=== PATIENT | female | born 1955 ===

== ENCOUNTER 2017-07-19 22:50 | Inpatient (IN) ==
[2017-07-20] MEDS ORDERED: GLUCAGON 1 MG VIAL IM PRN (01:43)
[2017-07-20] MEDS ORDERED: DEXTROSE 50% 25 GM/50 ML VIAL IV PRN (01:43)
[2017-07-20] MEDS ORDERED: ALBUTEROL 2.5 MG/3 ML NEB RESP TX PRN (01:43)
[2017-07-20] MEDS: PANTOPRAZOLE 40 MG VIAL IV SCH (02:25)
[2017-07-20] MEDS: LACTATED RINGERS 1,000 ML IV SCH ×2 (02:25→12:57)
[2017-07-20] MEDS: hydrALAZINE 20 MG/1 ML VIAL IV PRN ×3 (02:30→23:42)
[2017-07-20] MEDS ORDERED: SODIUM CHLORIDE 0.9% 2,000 ML IV ONE (02:30)
[2017-07-20 02:54] LABS: ABG Base Excess -7.6 MMOL/L (-2.5-2.5); ABG HCO3 18.2 MMOL/L (20-26); ABG Oxygen Saturation 99.9 % (95-100); ABG PCO2 31.3 MM HG (35-48); ABG PH 7.348 (7.35-7.45); ABG TCO2 16.2 MMOL/L (23-27); Allen Test Positive; Pt O2 Delivery Device Ventilator
[2017-07-20] MEDS ORDERED: PROPOFOL 1,000 MG/100 ML BOTTLE IV ONE (04:34)
[2017-07-20] MEDS: PROPOFOL 1,000 MG/100 ML BOTTLE IV SCH ×3 (04:40→17:46)
[2017-07-20] MEDS: INSULIN REGULAR 100 UNIT/ML SUBCUT SCH ×3 (05:26→18:39)
[2017-07-20 05:28] LABS: Basophils % 0.2 % (0.0-0.8); Eosinophils % 0.3 % (0.00-10.9); Hematocrit 23.8 VOL% (35.7-47.0); Hemoglobin 7.5 GM/DL (12.0-16.0); Immature Granulocytes % 3.4 %; Immature Granulocytes Absolute 0.41 #; Lymphocytes % 8.2 % (21.3-54.2); Mean Corpuscular HGB Conc 31.5 GM/DL (32-36); Mean Corpuscular Hemoglobin 31 PG (27-34); Mean Corpuscular Volume 99.2 FL (87-102); Mean Platelet Volume 9.9 FL (9.6-12.0); Monocytes # 0.4 10*3/uL (0.11-0.8); NRBC # 0.02 10*3/uL; Neutrophils # 10.1 10*3/uL (1.4-7.4); Neutrophils % 84.9 % (38.7-73.9); Platelet Count 170 T/CUMM (130-400); Red Cell Distribution Width 13.2 % (9.3-17.3); White Blood Count 11.9 T/CUMM (4-12)
[2017-07-20 05:56] LABS: Band Neutrophils 4 % (0-10); Lymphocytes 4 % (20-55); Platelet Estimate Normal; Segmented Neutrophils 86 % (50-85); Total Cells Counted 100
[2017-07-20 05:57] LABS: Giant Platelets Few; Hypochromasia 1+
[2017-07-20 06:14] LABS: Alanine Aminotransferase 464 U/L (13-56); Albumin 2.6 G/DL (3.4-5.0); Alkaline Phosphatase 118 U/L (45-117); Aspartate Amino Transferase 1073 U/L (0-37); Bilirubin,Total < 0.39 MG/DL (0.2-1.0); Blood Urea Nitrogen 75 MG/DL (7-18); Calcium 8.2 MG/DL (8.5-10.1); Glucose 93 MG/DL (74-106); Osmolality,Calculated 300.4 MOS/KG (273-304); Sodium 140 MMOL/L (136-145)
[2017-07-20 06:17] LABS: Potassium 6.4 MMOL/L (3.5-5.1)
[2017-07-20] MEDS ORDERED: SODIUM POLYSTYRENE SULFATE 15 GM/60 ML BOTTLE PO STA (06:21)
[2017-07-20] MEDS: ALBUTEROL/IPRATROPIUM 3 ML NEB RESP TX SCH ×3 (07:38→19:26)
[2017-07-20 08:31] LABS: ABG Base Excess -7.1 MMOL/L (-2.5-2.5); ABG HCO3 18.6 MMOL/L (20-26); ABG Oxygen Saturation 99.9 % (95-100); ABG PCO2 29.8 MM HG (35-48); ABG PH 7.372 (7.35-7.45); ABG TCO2 16.2 MMOL/L (23-27)
[2017-07-20] MEDS ORDERED: PANTOPRAZOLE 40 MG TABLET PO SCH (09:00)
[2017-07-20] MEDS: ENOXAPARIN 30 MG/0.3 ML SYRINGE SUBCUT SCH (09:34)
[2017-07-20 12:47] LABS: Calcium 8.2 MG/DL (8.5-10.1); Osmolality,Calculated 304.1 MOS/KG (273-304); Potassium 5.9 MMOL/L (3.5-5.1)
[2017-07-20] MEDS: SODIUM BICARB INJ 50 MEQ in DEXTROSE 5% 1,000 ML IV SCH (17:45)
[2017-07-21] MEDS: PROPOFOL 1,000 MG/100 ML BOTTLE IV SCH ×2 (00:27→06:57)
[2017-07-21] MEDS: INSULIN REGULAR 100 UNIT/ML SUBCUT SCH ×4 (00:55→17:45)
[2017-07-21] MEDS: ALBUTEROL/IPRATROPIUM 3 ML NEB RESP TX SCH ×4 (01:12→19:30)
[2017-07-21] MEDS: PANTOPRAZOLE 40 MG VIAL IV SCH (02:53)
[2017-07-21 04:06] LABS: ABG Base Excess -5.3 MMOL/L (-2.5-2.5); ABG Oxygen Saturation 97.8 % (95-100); ABG PCO2 32.2 MM HG (35-48); ABG PH 7.385 (7.35-7.45); ABG TCO2 18.8 MMOL/L (23-27); Allen Test Positive; Pt O2 Delivery Device Ventilator
[2017-07-21] MEDS: hydrALAZINE 20 MG/1 ML VIAL IV PRN ×2 (05:32→17:23)
[2017-07-21 06:38] LABS: Basophils % 0.2 % (0.0-0.8); Eosinophils % 0.2 % (0.00-10.9); Hematocrit 23.3 VOL% (35.7-47.0); Hemoglobin 7.5 GM/DL (12.0-16.0); Immature Granulocytes % 1.6 %; Immature Granulocytes Absolute 0.21 #; Lymphocytes # 0.9 10*3/uL (1.4-4.0); Lymphocytes % 6.6 % (21.3-54.2); Mean Corpuscular HGB Conc 32.2 GM/DL (32-36); Mean Corpuscular Hemoglobin 32 PG (27-34); Mean Corpuscular Volume 98.7 FL (87-102); Mean Platelet Volume 10.1 FL (9.6-12.0); Monocytes # 0.6 10*3/uL (0.11-0.8); Monocytes % 4.7 % (1.7-12.7); Neutrophils # 11.3 10*3/uL (1.4-7.4); Neutrophils % 86.7 % (38.7-73.9); Platelet Count 168 T/CUMM (130-400); Red Blood Count 2.36 MC/CUMM (3.8-5.5); Red Cell Distribution Width 13.8 % (9.3-17.3)
[2017-07-21 07:15] LABS: Magnesium 3.1 MG/DL (1.8-2.4); Osmolality,Calculated 304.4 MOS/KG (273-304); Potassium 4.4 MMOL/L (3.5-5.1)
[2017-07-21] MEDS: ENOXAPARIN 30 MG/0.3 ML SYRINGE SUBCUT SCH (09:24)
[2017-07-21] MEDS: SODIUM BICARB INJ 50 MEQ in DEXTROSE 5% 1,000 ML IV SCH (12:57)
[2017-07-21] MEDS: MORPHINE 2 MG/1 ML SYRINGE IV PRN (18:01)
[2017-07-21] MEDS: LEVOFLOXACIN INJ 750 MG in PREMIX 1 EACH IV SCH (21:19)
[2017-07-22] MEDS: ALBUTEROL/IPRATROPIUM 3 ML NEB RESP TX SCH ×4 (00:33→20:05)
[2017-07-22] MEDS: INSULIN REGULAR 100 UNIT/ML SUBCUT SCH ×5 (00:35→21:51)
[2017-07-22] MEDS: PANTOPRAZOLE 40 MG VIAL IV SCH (02:52)
[2017-07-22 06:23] LABS: Alanine Aminotransferase 202 U/L (13-56); Albumin 2.4 G/DL (3.4-5.0); Alkaline Phosphatase 84 U/L (45-117); Aspartate Amino Transferase 59 U/L (0-37); Bilirubin,Direct < 0.100 MG/DL (0.0-0.20); Bilirubin,Indirect 0.3 MG/DL (0.0-1.0); Total Protein 5.1 G/DL (6.4-8.3)
[2017-07-22] MEDS: MORPHINE 2 MG/1 ML SYRINGE IV PRN (07:10)
[2017-07-22] MEDS: PROPOFOL 1,000 MG/100 ML BOTTLE IV SCH (07:14)
[2017-07-22] MEDS: ENOXAPARIN 30 MG/0.3 ML SYRINGE SUBCUT SCH (08:54)
[2017-07-22] MEDS: SODIUM BICARB INJ 50 MEQ in DEXTROSE 5% 1,000 ML IV SCH (11:45)
[2017-07-22] MEDS: oxyCODONE/ACETAMINOPHEN 5-325 MG TABLET PO PRN ×2 (12:04→21:50)
[2017-07-22] MEDS ORDERED: ONDANSETRON 4 MG TABLET PO PRN (15:40)
[2017-07-22] MEDS: TRIAMTERENE/HCTZ 37.5-25 MG TABLET PO SCH (16:19)
[2017-07-22] MEDS: NEBIVOLOL 10 MG TABLET PO SCH (16:20)
[2017-07-22] MEDS ORDERED: ALBUTEROL 2.5 MG/3 ML NEB RESP TX PRN (19:00)
[2017-07-22] MEDS: LOSARTAN 50 MG TABLET PO SCH (21:50)
[2017-07-22] MEDS: AMITRIPTYLINE 25 MG TABLET PO SCH (21:51)
[2017-07-23] MEDS: ALBUTEROL/IPRATROPIUM 3 ML NEB RESP TX SCH ×4 (01:21→19:08)
[2017-07-23] MEDS: PANTOPRAZOLE 40 MG VIAL IV SCH (02:24)
[2017-07-23] MEDS: PROPOFOL 1,000 MG/100 ML BOTTLE IV SCH (03:54)
[2017-07-23 05:30] LABS: Calcium 7.7 MG/DL (8.5-10.1); Osmolality,Calculated 289.5 MOS/KG (273-304); Potassium 4.3 MMOL/L (3.5-5.1)
[2017-07-23 05:55] LABS: Alanine Aminotransferase 120 U/L (13-56); Albumin 2.2 G/DL (3.4-5.0); Alkaline Phosphatase 70 U/L (45-117); Aspartate Amino Transferase 24 U/L (0-37); Bilirubin,Indirect 0.3 MG/DL (0.0-1.0); Bilirubin,Total < 0.39 MG/DL (0.2-1.0); Total Protein 4.7 G/DL (6.4-8.3)
[2017-07-23 06:07] LABS: Basophils % 0.3 % (0.0-0.8); Eosinophils # 0.3 10*3/uL (0.0-0.87); Eosinophils % 2.7 % (0.00-10.9); Hematocrit 22.8 VOL% (35.7-47.0); Hemoglobin 7.3 GM/DL (12.0-16.0); Immature Granulocytes % 1.1 %; Immature Granulocytes Absolute 0.13 #; Lymphocytes # 2.1 10*3/uL (1.4-4.0); Lymphocytes % 18.1 % (21.3-54.2); Mean Corpuscular Hemoglobin 32 PG (27-34); Mean Corpuscular Volume 98.3 FL (87-102); Mean Platelet Volume 9.7 FL (9.6-12.0); Monocytes # 0.8 10*3/uL (0.11-0.8); Neutrophils # 8.3 10*3/uL (1.4-7.4); Neutrophils % 70.8 % (38.7-73.9); Platelet Count 186 T/CUMM (130-400); Red Blood Count 2.32 MC/CUMM (3.8-5.5); Red Cell Distribution Width 13.2 % (9.3-17.3); White Blood Count 11.8 T/CUMM (4-12)
[2017-07-23] MEDS: INSULIN REGULAR 100 UNIT/ML SUBCUT SCH ×4 (09:26→20:56)
[2017-07-23] MEDS: ENOXAPARIN 30 MG/0.3 ML SYRINGE SUBCUT SCH (09:27)
[2017-07-23] MEDS: TRIAMTERENE/HCTZ 37.5-25 MG TABLET PO SCH (09:27)
[2017-07-23] MEDS: DULoxetine 20 MG CAPSULE PO SCH (09:27)
[2017-07-23] MEDS: LOSARTAN 50 MG TABLET PO SCH ×2 (09:27→20:56)
[2017-07-23] MEDS: NEBIVOLOL 10 MG TABLET PO SCH (09:27)
[2017-07-23] MEDS: SODIUM BICARB INJ 50 MEQ in DEXTROSE 5% 1,000 ML IV SCH (09:28)
[2017-07-23] MEDS: FLUTICASONE 50 MCG NASAL SPRAY 16 GM BOTTLE BOTH NARES SCH (12:58)
[2017-07-23] MEDS: AMITRIPTYLINE 25 MG TABLET PO SCH (20:56)
[2017-07-23] MEDS: LEVOFLOXACIN INJ 750 MG in PREMIX 1 EACH IV SCH (20:57)
[2017-07-24] MEDS: ALBUTEROL/IPRATROPIUM 3 ML NEB RESP TX SCH ×2 (00:03→08:24)
[2017-07-24] MEDS: PANTOPRAZOLE 40 MG VIAL IV SCH (02:13)
[2017-07-24] MEDS: INSULIN REGULAR 100 UNIT/ML SUBCUT SCH ×2 (08:04→12:29)
[2017-07-24] MEDS: LOSARTAN 50 MG TABLET PO SCH (09:01)
[2017-07-24] MEDS: DULoxetine 20 MG CAPSULE PO SCH (09:01)
[2017-07-24] MEDS: NEBIVOLOL 10 MG TABLET PO SCH (09:01)
[2017-07-24] MEDS: TRIAMTERENE/HCTZ 37.5-25 MG TABLET PO SCH (09:01)
[2017-07-24] MEDS: ENOXAPARIN 30 MG/0.3 ML SYRINGE SUBCUT SCH (09:02)
[2017-07-24] MEDS: FLUTICASONE 50 MCG NASAL SPRAY 16 GM BOTTLE BOTH NARES SCH (09:02)
[2017-07-24 12:35] VITALS: BP 139/69
== END 2017-07-24 14:15 | disposition home or self-care (01) | DRG 871 ==
LOC: N.CC 23:21 → SUATTDRO 23:21 → N.5E 07-22 18:17
PROVIDERS: ADMIT Internal Medicine; ATTEND Hospitalist